=== PATIENT | female | born 1960 | race Caucasian/White ===

== ENCOUNTER → 2023-08-10 13:03 | Outpatient (CLI) | payer OTHER, MEDICAID, SELFPAY ==
[2023-08-10 13:58] LABS: Add Manual Diff / Slide Review NO; Basophils Absolute Auto 0 /uL (0-100); Basophils Percent Auto 0.6 % (0-2); Eosinophils Absolute Auto 100 /uL (0-450); Eosinophils Percent Auto 0.9 % (2-4); Hematocrit 45.5 % (36-46); Hemoglobin 15.3 g/dL (12.0-16.0); Lymphocytes Absolute Auto 1900 /uL (1100-4500); Lymphocytes Percent Auto 25.8 % (25-40); Mean Corpuscular HGB Conc 33.6 % (30-36); Mean Corpuscular Hemoglobin 31.1 PG (26-34); Mean Corpuscular Volume 92.4 fL (80-100); Monocytes Absolute Auto 600 /uL (0-900); Monocytes Percent Auto 8.4 % (3-14); Neutrophils Absolute Auto 4800 /uL (1500-7000); Neutrophils Percent Auto 64.3 % (50-75); Platelet Count 283 X10^3/uL (150-400); Red Blood Cell Count 4.92 X10^6/uL (4.0-5.2); Red Cell Distribution Width 15.4 % (11.6-14.8); White Blood Cell Count 7.5 X10^3/uL (4.5-11.0)
[2023-08-10 14:06] LABS: Hemoglobin A1C% w Est Avg Glu 5.5 % (4.0-6.0)
[2023-08-10 14:11] LABS: Appearance Urine UA CLEAR; Bilirubin Urine UA 1+ (NEGATIVE); Color Urine UA YELLOW; Glucose Urine UA NEGATIVE (Negative); Ketones Urine UA TRACE (NEGATIVE); Leukocyte Esterase Urine UA NEGATIVE (NEGATIVE); Nitrite Urine UA NEGATIVE (Negative); Occult Blood Urine UA NEGATIVE (Negative); Protein Urine UA NEGATIVE (Negative); Specific Gravity Urine UA 1.025 (1.000-1.035); Urobilinogen Urine UA 0.2 E.U./dL (0.2)
[2023-08-10 14:12] LABS: pH Urine UA 5.5 (4.5-8.0)
[2023-08-10 14:14] LABS: Ictotest Urine Negative (Negative); Urine Volume 10mL (spun)
[2023-08-10 14:15] LABS: Bacteria Urine None Seen; RBC Urine None Seen (0-5/HPF); Squamous Epithelial Cell Urine 1-5 /HPF (0-5/HPF); WBC Urine None Seen (0-5/HPF)
[2023-08-10 14:16] LABS: BUN Creatinine Ratio 19.3 (6-22); Blood Urea Nitrogen 11 mg/dL (7-17); Calcium 9.3 mg/dL (8.4-10.2); Calcium Oxalate Crystals Urine Moderate; Carbon Dioxide 30 mmol/L (22-32); Chloride 101 mmol/L (98-107); Culture Indicated Urine Cult Not Indicated; Estimated Glomerular Filt Rate > 60 mL/min (>60); Glucose 126 mg/dL (80-110); HEMOLYSIS 24 (0-50); Potassium 4.2 mmol/L (3.4-5.1); Sodium 136 mmol/L (137-145)
== END ==
PROVIDERS: Referring Provider Orthopaedic Surgery; Visit Provider Orthopaedic Surgery
DX: Z01.818 Encounter for other preprocedural examination (principal); Z01.812 Encounter for preprocedural laboratory examination; R73.9 Hyperglycemia, unspecified; N39.0 Urinary tract infection, site not specified
CPT/HCPCS: 36415; 80048; 81001; 83036; 85025; 93005; 93010

== ENCOUNTER 2023-10-13 05:51 | Day surgery (SDC) | payer OTHER, MEDICAID, SELFPAY ==
[2023-10-04 08:23] VITALS: BMI 37.9
[2023-10-13] VITALS (12 sets, daily range): BP systolic 92–145; BP diastolic 44–97; PULSE 68–89; RESP 12–20; TEMP 35.9–36.7; O2SAT 93–97; BMI 37.9
--- NOTE | 2023-10-13 | DI.RAD.S_ITS ---
PROCEDURE: XR PELVIS 1-2V INDICATIONS: intra-op rt hip TECHNIQUE: Intra-operative view of the pelvis and hip acquired. COMPARISON: None. FINDINGS: Bones: Intraoperative devices prior to placement of arthroplasty prostheses are in expected positions. No fractures or suspicious bony lesions. Soft tissues: Overlying surgical retractors are present, along with other intraoperative changes. IMPRESSION: Intraoperative view during right hip arthroplasty. Dictated by: Deshawn Gamboa M.D. on 10/13/2023 at 10:59 Approved by: Deshawn Gamboa M.D. on 10/13/2023 at 11:00
[2023-10-13] MEDS: LACTATED RINGERS 1,000 ML 42 ML IV ×2 (07:06→09:23)
--- NOTE | 2023-10-13 07:12 | PM.PREOP ---
Pre-operative Note Interval Note History & Physical reviewed/Exam performed by Physician: Yes Changes to H&P: No
--- NOTE | 2023-10-13 07:12 | PM.OP.1 ---
Operative Date/Time/Diagnoses Date of procedure: 10/13/23 Time of procedure: 07:45 Pre-op diagnosis: right hip OA/ AVN Post-op diagnosis: same Procedure & Clinicians Procedure: Right total hip arthroplasty posterior approach Same procedure as scheduled: Yes Indications: The patient has had progressively worsening right hip pain with radiographic changes consistent with arthritis. Non-operative management has failed and the patient has requested total hip replacement. The risks, benefits and alternatives to surgery were discussed with the patient prior to proceeding. Risks discussed included, but were not limited to, failure to relieve pain, leg length discrepancy, dislocation, stiffness, infection, nerve damage, deep venous thrombosis, pulmonary embolism, stroke, coma, heart attack, permanent paralysis and , as well as the potential need for eventual revision of the prosthetic. Surgeon: Mireya Stewart Refinery Process Engineer: Efrem Recinos Anesthesia Type: General and Spinal Operative Notes Findings: Severe right hip OA and AVN, adequate bone, adequate stability Closure Type: primary Specimen(s): none sent Prosthetic devices, grafts, tissues, transplants, or devices: Stewart and nephew 48 R3, neutral poly liner, one 6.5 mm screw, polar stem size 2 standard offset, 32 by-3 Oxinium head Estimated Blood Loss (mL): 250 Blood products transfused: none Procedure in detail: The patient was seen in the pre-operative area, where the patient identified the right hip as the operative site and this was marked with my initials. The patient received pre-operative antibiotics and was taken to the operating room and placed on the operative table in the left lateral decubitus position after satisfactory anesthesia. A multimedia author out was performed. The right leg was prepared from the ankle to the iliac crest with ChloroPrep in the usual fashion and draped through sterile drapes. PA was used during the procedure and was essential for intraoperative retraction and safe implantation of the components. The hip was approached through an approximately 20 cm incision centered over the greater trochanter and curving gently posteriorly as it went proximally. This was carried sharply to the fascia emmanuel, which was divided and retracted with a self retaining retractor. The trochanteric bursa was excised with care being taken to avoid the sciatic nerve, which was identified and protected throughout the case. The short external rotators were incised and the capsulomuscular flap was raised and tagged for later repair. The hip was dislocated, and a femoral neck osteotomy performed approximately 15 mm above the lesser trochanter. Retractors were placed around the femur. The canal was opened with a box cutting osteotome, followed by a T handled reamer and a lateralizing reamer. The chili pepper broach was then used, followed by sequential broaching until there was good stability of the broach in the femur. Retractors were placed to expose the acetabulum. The labrum and central soft tissues were removed. Reaming was performed initially going up in 2 mm increments, then 1 mm increments until good bite was obtained with an odd sized reamer. The cup 1 mm larger than the last reamer was then inserted using the appropriate anteversion guides. It was further stabilized with a single screw. A trial neutral liner was placed. The broach was placed in the canal. A trial head and neck were then placed and the hip relocated and checked for leg length and stability. An intraoperative film confirmed the component position and no evidence of fracture. The patient was stable in the position of sleep, of squatting, and could be put through a range of motion with 45 degrees internal rotation without dislocation. At 90 degrees flexion, internal rotation to 70? Was possible before dislocation. With a +0 the hip was clearly too tight. We also did a trial reduction with a-3 which showed acceptable range motion and stability. Along the greater trochanter on the posterior side there was a small amount of the greater trochanter where it appeared that there was a minor crack. It did not extend to the anterior aspect of the greater trochanter but it was felt that we should probably repair it. The stability of the broach in the bone was good. It was not felt that I needed to cemented the prosthesis. The minor crack was repaired with interrupted FiberWire stitches. It was not felt that additional cerclage wire plate would be needed. The stability was felt to be satisfactory and the appropriate components were opened, and the trials were removed. The acetabular liner was impacted into position. The final stem was then impacted into the prepared femoral canal. A brief Betadine soak was performed while trialing with head options. The hip was meticulously irrigated with normal saline. Finally the femoral head was impacted onto the stem. The acetabulum was cleared of all material and the hip relocated one final time. The capsulomuscular flap was then repaired to the greater trochanter though an awl hole using the tag sutures. The short external rotators were repaired with a nonabsorbable suture. A deep drain was placed and brought out anteriorly. The fascia emmanuel was closed with Vicryl. The subcutaneous layer was closed with barbed sutures and skin oly. An Aquacel Ag dressing was applied and the patient was taken to recovery having tolerated the procedure well. Complications: none Post-operative Condition: stable Disposition: Acute Care Plan for aftercare: The patient will be maintained on a standard total hip replacement protocol with weight bearing as tolerated and posterior hip precautions. The patient will receive Aspirin and sequential compression devices for DVT prophylaxis. The patient will be discharged home when safe for the home environment.
--- NOTE | 2023-10-13 07:18 | DI.RAD.S_ITS ---
PROCEDURE: XR HIP W PEL IF DONE RT 2V INDICATIONS: MISAEL, posterior TECHNIQUE: AP pelvis and lateral view of the hip acquired. COMPARISON: None. FINDINGS: Bones: Patient is status post right hip arthroplasty, with hardware components in expected positions. The hip joint appears congruent. The visualized bony structures appear intact. Soft tissues: Overlying postoperative changes are noted. No suspicious soft tissue densities. IMPRESSION: Expected post-operative appearance of a hip arthroplasty. Dictated by: Pura Bailey MD, PhD on 10/13/2023 at 11:31 Approved by: Pura Bailey MD, PhD on 10/13/2023 at 11:31
[2023-10-13] MEDS: VANCOMYCIN 1,000 MG/200 ML PIGGYBACK 200 MG IV (07:29)
[2023-10-13] MEDS: CELECOXIB 200 MG CAPSULE PO (07:30)
[2023-10-13] MEDS: ACETAMINOPHEN 325 MG TABLET 975 MG PO (07:30)
[2023-10-13] MEDS: CEFAZOLIN 2 GM/100 ML PREMIX 100 ML IV ×2 (07:58→16:29)
--- NOTE | 2023-10-13 08:34 | SUR.OPER ---
Lateral on padded OR bed. Gel axillary roll. Arms secured on padded armboard with pillow supporting top arm. Padded hip positioner braces x4 - anterior and posterior chest and pelvis. Additional gel pad used anterior pelvis. Gel pad under bottom leg from knee to foot and secured with tape over sheet.
[2023-10-13] MEDS: BUPIVACAINE LIPOSOME 266 MG/20 ML VIAL INJ (08:47)
[2023-10-13] MEDS: BUPIVACAINE 0.25% (PF) 60 ML, EPINEPHrine 0.3 MG INJ (08:47)
[2023-10-13] MEDS: OXYCODONE IR 5 MG TABLET PO ×2 (11:11→12:18)
[2023-10-13] MEDS: HYDROMORPHONE 1 MG INJ IV (11:15)
[2023-10-13] MEDS: IBUPROFEN 400 MG TABLET PO (12:18)
--- NOTE | 2023-10-13 12:22 | PT-IP ANOTE ---
Pt arrives in the past hour after surgery to the floor. Nsg and pt report that pt has high pain s/p R posterior MISAEL and she cannot currently tolerate PT assessment and OOB. Will con't PT efforts at a later time.
[2023-10-13] MEDS: LORazepam 0.5 MG TABLET PO (14:30)
--- NOTE | 2023-10-13 14:30 | OT.IP.EVAL ---
Current Diagnoses Unilateral primary osteoarthritis, right hip (10/13/23) Surgery Performed Operation Date: 10/13/23 07:45 Actual Procedures p Total Hip Arthroplasty(Right) - Mireya Stewart MD Past Medical History (Last Updated 10/04/23 @ 09:47 by Suzi Khan, RN) Anesthesia complication Anxiety Arrhythmia COPD (chronic obstructive pulmonary disease) Depression Easy bruisability Hepatitis C (~2009) HTN (hypertension) IBS (irritable bowel syndrome) Increased heart rate Insomnia Migraines Osteoarthritis PTSD (post-traumatic stress disorder) TIA (transient ischemic attack) (~2013) Vision abnormalities Surgical History (Last Updated 10/04/23 @ 09:29 by Suzi Khan RN) H/O left wrist surgery H/O right wrist surgery History of ankle surgery History of cardiac cath (~2013) History of elective History of hernia surgery History of tonsillectomy Hx of dilation and curettage Hx of neck surgery Occupational Therapy Inpatient Evaluation/Re-Eval M1 PT/OT-IP Prior Functional Status Start: 10/13/23 14:33 Freq: NEEDED Status: Active Protocol: Document 10/13/23 14:34 [facility] (Rec: 10/13/23 14:55 [facility] [id number]) Medical Review Prior Functional Status Communication Independent Mobility and Gait Pt uses a fww to get around. Activities of Daily Living and IADL's Pt's mother has had to help with LB dressing needs. Social History Household Members family Living Arrangements House Number of Floors (Floors) One Floor Number of Stairs To Enter/Railing? 3 steps with right rail. Home Environment Standard Height Toilet,Walk in Shower Home Equipment Front Wheel Walker,Straight Cane,Shower Seat with Backrest ,Hand Held Shower,Grab Bars In Shower Additional Social History Comment Pt elderly mom able to provide assist for IADL and for LB dressing needs , but unable to do any lifting. M2 OT-IP Current Condition Start: 10/13/23 14:33 Freq: Status: Active Protocol: Document 10/13/23 14:34 [facility] (Rec: 10/13/23 14:55 [facility] [id number]) Occupational Therapy Current Condition Current Condition Evaluation Date 10/13/23 Treatment Diagnosis S/P RTHA Posterior Diagnosis Onset Date 10/13/23 Post Operative Precautions Posterior Hip Precautions No Hip Flexion > 90 degrees,No Hip Internal Rotation,No Hip Adduction M3 OT- IP Subjective and Pain Start: 10/13/23 14:33 Freq: Status: Active Protocol: Document 10/13/23 14:34 [facility] (Rec: 10/13/23 14:55 [facility] [id number]) OT- Subjective Occupational Therapy Visit Type Type Initial Evaluation Visit Start Time 13:43 Visit Stop Time 14:30 Occupational Therapy Visit Comments Patient Comments Pt in lots of pain but agreed to try to get up. Nursing aware. Patient/Caregiver Goals To go home. OT Pain Assessment Pain When Pain Assessed During Mobility Pain Present Pain Present Pain Reported Location right hip Intensity 10 Scale Used Numeric (0 - 10) M4 OT- IP ADL's Start: 10/13/23 14:33 Freq: Status: Active Protocol: Document 10/13/23 14:34 [facility] (Rec: 10/13/23 14:55 [facility] [id number]) OT [id number] Comments OT Self-Feeding Comments Pt having no appetite due to increased pain. OT ADL-Grooming Comments OT Grooming Comments Not performed. OT ADL-Oral Care Comments Oral Care Comments Not performed. OT ADL-Dressing General Eval Lower Body Dressing Ability Maximum Assistance Comments OT Dressing Comments Able to show pt and practice use of LB dressing equipment. Pt states her mother will just assist her as she did when she had a fx right ankle. OT ADL-Toileting Comments OT Toileting Comments Pt not having to go. Pt would benefit from a BSC or RTS at home. Pt plans to use wet wipes and brief. Educated to pt best to stand and do her hygiene needs. OT ADL-Bathing Comments OT Bathing Comments Pt will benefit from assist at this time. M5 OT- IP IADL's Start: 10/13/23 14:33 Freq: Status: Active Protocol: Document 10/13/23 14:34 [facility] (Rec: 10/13/23 14:55 [facility] [id number]) OT-Instrumental Activities of Daily Living Deficits IADL Deficits Identified Deficits Home Safety Awareness Awareness of Need for Assistance at Home Good Awareness Home Safety Comments Pt having trouble to focus as in so much pain, nursing aware . Meal Preparation Meal Preparation Caregiver Provides Assist Master Merchandiser Master Merchandiser Caregiver Provides Assist M6 OT- IP Functional Cognition Start: 10/13/23 14:33 Freq: Status: Active Protocol: Document 10/13/23 14:34 [facility] (Rec: 10/13/23 14:55 [facility] [id number]) Cognitive Factors Limiting Selfcare Function Cognitive Ability Level of Alertness Alert Patient Orientation Name,Age,Birthday,Month,Date, Year,Day of Week,Place, Situation Attention Span Ability Capable of Focused Attention, Unable to Sustain Attention Ability to Follow Commands Able to Follow One Step Commands Safety Awareness Decreased Recall of Precautions,Decreased Ability to Apply Precautions Cognitive Comments Cognitive Assessment Comments Pt heavily focused on her pain at this time and having trouble thinking and needing verbal cues to follow for her hip precautions for ADL and mobility needs. OT- Vision and Hearing OT- Hearing Assessment OT- Hearing Assessment WFL OT- Vision Assessment Visual Acuity Glasses For Reading Visual Attentiveness WFL Occular Pursuits WFL M7 OT- IP Mobility and Balance Start: 10/13/23 14:33 Freq: Status: Active Protocol: Document 10/13/23 14:34 [facility] (Rec: 10/13/23 14:55 [facility] [id number]) OT- Bed Mobility Assessment Supine to Sit Supine to Sit Assist Minimal Assistance Sit to Supine Sit to Supine Assist Minimal Assistance Scooting Scooting to Edge of Bed Standby Assistance OT-Transfer Assessment Sit to and From Stand Sit to and from Stand Minimal Assistance Transfers Transfer Ability Minimal Assistance,Moderate Assistance Technique Transfer Destination Bed,Chair Transfer Technique Stand Step Pivot Devices Transfer Assistive Devices Gait Belt,Front Wheeled Walker Comments Mobility Comments GUCCI to get her RLE into and out of the bed. Showed pt how to use the gait belt to assist if needed. GUCCI to stand and needing initially MODA and then after getting more comfortable on her feet GUCCI with FWW. VC to keep her RLE tight while using her arms on the fww to help advance her other leg. OT- Balance Assessment Sitting Balance and Reactions Static Sitting Balance Ability Good Dynamic Sitting Balance Ability Fair Standing Balance and Reactions Static Standing Balance Ability Fair Dynamic Standing Balance Ability Fair M8 OT- IP Objective Assessments Start: 10/13/23 14:33 Freq: Status: Active Protocol: Document 10/13/23 14:34 [facility] (Rec: 10/13/23 14:55 [facility] [id number]) OT Gross Range of Motion Upper Extremity Range of Motion Assessment Within Functional Limits OT Strength Upper Extremity Strength Assessment Within Functional Limits M9 OT- IP Assessment and Plan Start: 10/13/23 14:33 Freq: Status: Active Protocol: Document 10/13/23 14:34 [facility] (Rec: 10/13/23 14:55 [facility] [id number]) OT Summary Assessment and Plan Potential Rehabilitation Potential Good Analytic Complexity at Evaluation Low Summary OT Impairments Pain,Strength,Balance, Functional Mobility,Grooming, Dressing,Toileting,Bathing, Toilet Transfers Progress Towards Goals Slow Progress due to Pain,Slow Progress due to Medical Issues Assessment Summary Pt main barriers are pain, complaining of shooting pains down her right LE and steps. Pt once on her feet able to take a few steps with GUCCI to MODA x1 with FWW. Pt will benefit from LB dressing equipment and a BSC for home use. Pt to go home when medically stable. Pt to go home with 18/10 available assist and outpt PT. Goals Grooming Goal Independent Dressing Goal Minimal Assistance Toileting Goal Independent Bathing Goal Minimal Assistance Toilet Transfer Goal Independent Shower Transfer Goal Contact Guard Assistance Days to Meet Goals 7 Frequency of Treatment Frequency Of Treatment Once a Day Treatment Plan OT Treatment Plan ADL Training,Functional Mobility,Patient/Family Education,Discharge Planning Other Treatment Recommendations and Next ADL while standing and Treatment Focus practice hip precautions for ADL needs. Discharge Recommendations OT Discharge Recommendations Home with 18/10 Assist Available,Outpatient PT Home Equipment Needs BSC, LB dressing equipment Transportation Needs at Discharge Private Vehicle
--- NOTE | 2023-10-13 14:37 | PC.NURSE ---
Addendum entered by Delia Carpio R.N. 10/13/23 18:34: Patient voided and she is comfortable, visiting with her Aunt at this time. Addendum entered by Delia Carpio R.N. 10/13/23 15:30: Ativan given to patient helpful for anxiety, patient states that her r.hip is 8/10 pain and it is a burning feeling. Just given 10mg of oxycodone for discomfort along with 2 tylenol. Will recheck patients pain in an hour. Original Note: Patient up to room around 1145, she has a neville dressing to her r.hip that is cdi. Given 5mg of oral oxycodone and ibuprofen around 1215. She was also given dilaudid iv and some tylenol down in pacu an hour or so prior to coming up to floor. Patient is hyper-fixated on her pain to r.hip and constantly repeats herself that it valle. Explained to patient several times that the pain medication will help keep her comfortable but that she will still have some discomfort. She is more anxious and worked up. Patient is moving herself around in bed and we have tried to explain to her to deep breath, and that the use of ice will help alleviate some of that discomfort but she does not want feedback from staff. Ativan 0.5mg po just given to patient and her friend Karen is at her bedside. Will reapproach patient in 30 minutes. LR infusing at 100cc/hr and patient is tolerating this well.
[2023-10-13] MEDS: OXYCODONE IR 10 MG TABLET PO ×2 (15:13→20:04)
[2023-10-13] MEDS: ACETAMINOPHEN 325 MG TABLET 650 MG PO ×2 (15:14→22:24)
[2023-10-13] MEDS: LACTATED RINGERS 1,000 ML 100 ML IV (15:15)
[2023-10-13] MEDS: ASPIRIN EC 81 MG TABLET PO (20:10)
[2023-10-13] MEDS: DOCUSATE 100 MG CAPSULE PO (20:10)
[2023-10-14] MEDS: CEFAZOLIN 2 GM/100 ML PREMIX 100 ML IV (01:00)
[2023-10-14] MEDS: LACTATED RINGERS 1,000 ML 100 ML IV (01:04)
[2023-10-14] MEDS: IBUPROFEN 600 MG TABLET PO ×2 (01:10→08:52)
[2023-10-14] MEDS: OXYCODONE IR 10 MG TABLET PO ×2 (01:10→05:29)
[2023-10-14 05:20] VITALS: BP 143/81; PULSE 89; RESP 19; TEMP 36.6; O2SAT 96
[2023-10-14 06:46] LABS: Hematocrit 35.7 % (36-46); Hemoglobin 12.3 g/dL (12.0-16.0)
[2023-10-14 08:00] VITALS: BP 137/77; PULSE 79; RESP 18; TEMP 36.7; O2SAT 96
--- NOTE | 2023-10-14 08:30 | P.DS_ITS ---
History of Present Illness History of Present Illness Date Patient Seen: 10/14/23 Time Patient Seen: 08:15 Chief complaint: Right Total Hip Arthroplasty Narrative: Procedure & Clinicians Procedure: Right total hip arthroplasty posterior approach Same procedure as scheduled: Yes Indications: The patient has had progressively worsening right hip pain with radiographic changes consistent with arthritis. Non-operative management has failed and the patient has requested total hip replacement. The risks, benefits and alternatives to surgery were discussed with the patient prior to proceeding. Risks discussed included, but were not limited to, failure to relieve pain, leg length discrepancy, dislocation, stiffness, infection, nerve damage, deep venous thrombosis, pulmonary embolism, stroke, coma, heart attack, permanent paralysis and , as well as the potential need for eventual revision of the prosthetic. Surgeon: Mireya Stewart Sanitation Worker Cleaning Equipment: Efrem Recinos Anesthesia Type: General and Spinal Operative Notes Findings: Severe right hip OA and AVN, adequate bone, adequate stability Closure Type: primary Specimen(s): none sent Prosthetic devices, grafts, tissues, transplants, or devices: Stewart and nephew 48 R3, neutral poly liner, one 6.5 mm screw, polar stem size 2 standard offset, 32 by-3 Oxinium head Estimated Blood Loss (mL): 250 Blood products transfused: none Discharge Providers Provider Date of admission: 10/13/23 Discharge Date: 10/14/23 Primary care physician: AIRAM De La Torre Consults: 10/13/23 07:18 Consult to Anesthesiology Routine Comment: Consulting Provider: Anesthesiologist Reason for consultation: Regional block for post operative pain control 10/13/23 11:56 Consult to Discharge Planning Routine Comment: Consult to Occupational Therapy Evaluate & Treat Comment: Physician Instructions: Evaluate and treat Consult to Physical Therapy Evaluate & Treat Comment: Physician Instructions: post op MISAEL protocol Discharge provider: Best Chow PA-C Summary Hospital Course Discharge Diagnosis: Status post right hip total arthroplasty posterior approach Hospital Course: Multimodal pain control. Physical therapy. Status at Discharge Cognitive/behavioral status at discharge: oriented Functional status at discharge: uses cane/walker Time Spent with Patient Time spent: Less than 30 minutes Exam Vital Signs (past 8 hours): - 10/14/23 05:20 Temperature 98 F Pulse Rate 89 Respiratory Rate 19 Blood Pressure 143/81 H Pulse Oximetry 96 Oxygen Flow Rate 0 Oxygen Delivery Method Room Air Oxygen Flow Rate 0 Narrative Exam Narrative: Patient is found lying comfortably in bed. Dressing is dry and well-maintained but vac is not working appropriately. 5/5 strength in hip flexors, quadriceps, hamstrings, DF, PF, EHL bilaterally. Sensation to light touch intact throughout BLE. Calves soft, compressible, nontender. Objective Labs 10/14/23 06:29 Labs: Laboratory Results - last 24 hr 10/14/23 06:29 Hgb 12.3 Hct 35.7 L PFSH Medical History (Updated 10/04/23 @ 09:47 by Suzi Khan RN) Depression PTSD (post-traumatic stress disorder) Easy bruisability Anxiety Osteoarthritis Hepatitis C (~2009) IBS (irritable bowel syndrome) Increased heart rate Arrhythmia HTN (hypertension) Insomnia COPD (chronic obstructive pulmonary disease) Migraines Vision abnormalities TIA (transient ischemic attack) (~2013) Anesthesia complication Surgical History (Updated 10/04/23 @ 09:29 by Suzi Khan RN) History of hernia surgery Hx of neck surgery H/O right wrist surgery H/O left wrist surgery History of ankle surgery History of tonsillectomy History of elective Hx of dilation and curettage History of cardiac cath (~2013) Social History household members: family Smoking Status: Former smoker alcohol intake: current Discharge Assessment & Plan Assessment and Plan Assessment: Status post right hip total arthroplasty posterior approach. Plan of Treatment: AFUA dressing changed today. Plan to discharge home Standard total hip replacement protocol with weight-bearing as tolerated and posterior hip precautions Aspirin 81 mg b.i.d. for DVT prophylaxis for 6 weeks Multimodal pain management Mobilize with outpatient physical therapy Follow up in clinic in 2 weeks for wound check. Discharge Plan Discharge Plan Patient Disposition: Home Provider Discharge Comment: DC pending PT approval Discharge orders & Medications Discharge Orders: Discharge (Order); Ordered 10/14/23 Ordered By: Best Chow Prescriptions: New aspirin 81 mg Tablet,Delayed Release (Dr/Ec) 81 mg PO BID Qty: 90 0RF Continued atenolol 25 MG tablet 25 mg PO QDAY Qty: 0 ibuprofen 800 mg Tablet 800 mg PO DAILY PRN (Reason: Pain) lorazepam 0.5 mg Tablet 0.5 mg PO DAILY PRN (Reason: Anxiety) oxycodone 5 mg Tablet 5 mg PO Q8H PRN (Reason: Pain) hydrochlorothiazide 12.5 mg Tablet 12.5 mg PO DAILY Follow up/Referrals: Lizbet Ohara FNP-C [Primary Care Provider] - Diet/Activity/Treatments Activity: Weightbearing as tolerated with assistive device Cold/Heat Therapy: May ice every hour for up to 20 minutes at a time Skin/Wound/Dressing Care Report to your healthcare provider any signs of infection, such as:: chills, fever, night sweats, unusual drainage and unusual redness Dressing: Keep dressing clean and dry. Visit Report/Discharge Packet Instructions: DI for Hip Replacement Stand Alone Forms: Patient Portal/API, Surgery Discharge Discharge Data Primary Care Provider: Lizbet Ohara Attending Provider: Mireya Stewart VTE Deep Vein Thrombosis/Pulmonary Embolism Present on Admission: No
[2023-10-14] MEDS: atenoloL 25 MG TABLET PO (08:52)
[2023-10-14] MEDS: DOCUSATE 100 MG CAPSULE PO (08:52)
[2023-10-14] MEDS: ASPIRIN EC 81 MG TABLET PO (08:53)
[2023-10-14] MEDS: hydroCHLOROthiazide 25 MG TABLET 12.5 MG PO (08:53)
--- NOTE | 2023-10-14 10:30 | PT.IIE ---
Current Diagnoses Unilateral primary osteoarthritis, right hip (10/13/23) Surgery Performed Operation Date: 10/13/23 07:45 Actual Procedures p Total Hip Arthroplasty(Right) - Mireya Stewart MD Surgical History (Last Updated 10/04/23 @ 09:29 by Suzi Khan RN) H/O left wrist surgery H/O right wrist surgery History of ankle surgery History of cardiac cath (~2013) History of elective History of hernia surgery History of tonsillectomy Hx of dilation and curettage Hx of neck surgery Medical History (Last Updated 10/04/23 @ 09:47 by Suzi Khan RN) Anesthesia complication Anxiety Arrhythmia COPD (chronic obstructive pulmonary disease) Depression Easy bruisability Hepatitis C (~2009) HTN (hypertension) IBS (irritable bowel syndrome) Increased heart rate Insomnia Migraines Osteoarthritis PTSD (post-traumatic stress disorder) TIA (transient ischemic attack) (~2013) Vision abnormalities Physical Therapy Inpatient Evaluation/Re-Eval M1 PT/OT-IP Prior Functional Status Start: 10/13/23 14:33 Freq: NEEDED Status: Active Protocol: Document 10/14/23 10:30 AB (Rec: 10/14/23 13:36 AB [id number]) Medical Review Prior Functional Status Medical History Reviewed Yes Communication able to make needs known Mobility and Gait pt stated that she was modified independent with all mobilities and ambulation withotu AD indoors but uses a walking stick for outdoor mobility. Activities of Daily Living and IADL's per OT note: Pt's mother has had to help with LB dressing needs. Social History Household Members family Living Arrangements House Number of Floors (Floors) One Floor Number of Stairs To Enter/Railing? 3 steps R rail ascedning Home Environment Standard Height Toilet,Walk in Shower,Built-In Shower Seat Home Equipment Front Wheel Walker,Shower Seat with Backrest,Hand Held Shower,Grab Bars In Shower Additional Social History Comment pt lives with her mother but will not be able to assist pt; pt plans to have her GF for ~ 2days to stay with her and assist her and may assist afterwards as well since GF lives close by M2 PT-IP Current Condition Start: 10/13/23 12:16 Freq: NEEDED Status: Active Protocol: Document 10/14/23 10:30 AB (Rec: 10/14/23 13:36 AB [id number]) Physical Therapy Current Condition Current Condition Evaluation Date 10/14/23 Treatment Diagnosis s/p R MISAEL posterior; difficulty in walking Onset Date 10/13/23 M3 PT-IP Subjective Start: 10/13/23 12:16 Freq: NEEDED Status: Active Protocol: Document 10/14/23 10:30 AB (Rec: 10/14/23 13:36 [id number]) Subjective Physical Therapy Visit Type Type Initial Evaluation Visit Start Time 10:30 Visit Stop Time 11:35 Number of DISTRICT SERVICE MANAGER Visits 0 Physical Therapy Visit Comments Patient Comments agreeable to do PT Therapy Pain Assessment Pain When Pain Assessed At Rest Pain Present Pain Present Pain Reported Location right hip Intensity 6 Scale Used Numeric (0 - 10) Pain Behaviors Guarding Pain Management Techniques Apply Cold,Distraction, Modification of Treatment,Re- positioning,Timing of Activity with Medications M4 PT-IP Mobility and Gait Start: 10/13/23 12:16 Freq: NEEDED Status: Active Protocol: Document 10/14/23 10:30 AB (Rec: 10/14/23 13:36 [id number]) PT-Bed Mobility Assessment Supine to Sit Supine to Sit Standby Assistance PT-Transfer Assessment Sit to and From Stand Sit to and from Stand Standby Assistance,1 Person Assistance,Use of Upper Extremities Equipment Transfer Assistive Device Gait Belt,Front Wheeled Walker Orthotic/Prosthetic Devices or Brace: No Transfers Transfer Destination Chair Transfer Technique ambulated Transfer Ability Level of Assist Standby Assistance,Contact Guard Assistance,1 Person Assistance,Use of Upper Extremities Comments Mobility Comments pt supine in bed and agreeable to do PT. obtained PLOF and homse set up from pt. post-op folder reviewed and educated pt on posterior hip precautions for RLE. pt initially has difficulty recalling but able to recall after repetitions. pt completed supine to sit SBA . able to sit on EOB SBA. completed sit to stand CGA and ambulated in room using FWW ~ 20 ft SBA to CGA. pt sat on the chair and rested. pt agreed to do stairs. completed sit to stand from chair SBA and cues for hand placement and precautions and ambulated towards the stairs ~ 75 ft using fWW SBA to CGA. stair climbing training: PT educated and demonstrated to pt on how to do stairs. pt completed up/down steps holding on to R rail with B hands CGA. assisted pt back to her room. pt ambulated from w/c to chair using FWW SBA. pt sat on EOB and completed sit<>supine SBA. cued on techniques. pt step transfer to chair SBA. positioned pt on the chair. call light and table placed within reach. pt without further concerns. stated that she will instruct her friend on how to assist her if needed. pt has outpt PT set up until november per pt . Gait Assessment Gait Gait Assistance Required: Standby Assistance,Contact Guard Assist Distance (Feet) 75 Able to Maintain Weight Bearing Status Yes During Gait Assistive Devices Assistive Device Gait Belt,Front Wheeled Walker Orthotic/Prosthetic Devices or Brace: No Gait Deviations General Gait Pattern Antalgic,Decreased Stride Length,Decreased Feet Clearance,Step-to Gait Factors Limiting Gait Function Factors Limiting Gait Function Decreased Activity Tolerance, Decreased Strength,Difficulty Following Directions,Limited Range of Motion,Pain,Poor Balance,Poor Safety Awareness Stair Climbing Assessment Evaluation Level of Assist On Stairs Contact Guard Assistance Devices Stair Climbing Assistive Devices Right Railing Technique/Endurance Stair Climbing Direction Ascend and Descend Stair Climbing Technique Step to Step Number of Steps Climbed 3 Query Text: Stair Climbing Set # Repetitions (reps) 1 PT-Balance Assessment Sitting Balance and Reactions Static Sitting Balance Ability Normal Dynamic Sitting Balance Ability Good Standing Balance and Reactions Static Standing Balance Ability Fair Dynamic Standing Balance Ability Fair Device Used FWW M5 PT-IP Objective Assessments Start: 10/13/23 12:16 Freq: NEEDED Status: Active Protocol: Document 10/14/23 10:30 AB (Rec: 10/14/23 13:36 AB [id number]) Orientation Orientation/Cognition Level of Alertness Alert Orientation Name,Place,Situation Language Function Ability No Deficits Noted Safety Awareness Decreased Safety Awareness Memory Description Short Term Impaired Gross Range of Motion Lower Extremity ROM Assessment Within Functional Limits Strength Lower Extremity Strength Assessment Right Impaired Hip 3+/5 Knee 4-/5 Coordination Assessment Gross Coordination Gross Coordination WNL Sensation Assessment Sensation Gross Sensation WNL Muscle Tone Muscle Tone WNL Yes M6 PT-IP Treatment Start: 10/13/23 12:16 Freq: NEEDED Status: Active Protocol: Document 10/14/23 10:30 AB (Rec: 10/14/23 13:36 AB [id number]) Physical Therapy Treatment Education Education Provided Precautions,Weight Bearing Status,Post-Op Packet,Safety M7 PT-IP Assessment and Plan Start: 10/13/23 12:16 Freq: NEEDED Status: Active Protocol: Document 10/14/23 10:30 AB (Rec: 10/14/23 13:36 AB [id number]) PT Summary Assessment and Plan Potential Rehabilitation Potential Fair Status of Condition at Evaluation Stable Summary Impairments Pain,ROM,Strength,Balance, Coordination,Sensation,Tone, Cognition,Bed Mobility, Transfers,Gait,Activity Tolerance Assessment Summary pt is a 63 y/o F s/p R MISAEL posterior approach POD 1. pt with R hip posterior precautions and is WBAT. pt requiring SBA to occasional CGA with mobility using FWW and plans to go home with her friend to assist her. pt may go home when medically stable. Goals Bed Mobility Goal Independent Transfer Goal Independent,Front Wheeled Walker Gait Goal Independent,Front Wheel Walker Gait Distance 200 Other Goals up/down 3 steps R rail ascending mod I Days to Meet Goals 5 Frequency of Treatment Frequency Of Treatment Twice a Day Treatment Plan Physical Therapy Treatment Plan Bed Mobility Training,Transfer Training,Gait Training, Therapeutic Exercise,Balance Retraining,Post Op Education, Discharge Planning,Hot or Cold Pack,Neuromuscular Re-ed, Coordination Retraining,Manual Therapy Precautions Posterior Hip Precautions No Hip Flexion > 90 degrees,No Hip Internal Rotation,No Hip Adduction Weight Bearing Status Weight Bearing Status Weight Bear as Tolerated Allowed Weight Bearing Amount (enter % RLE WBAT or #) (%) Recommendations To Nursing Amount of Assist Needed 1 Person Assist Discharge Recommendations PT Discharge Recommendations Home with Assistance, Outpatient PT Transportation Needs at Discharge Private Vehicle
--- NOTE | 2023-10-14 10:54 | PC.NURSE ---
Patient given ibuprofen earlier, and her neville dressing was changed. The motor is flashing green and patient is getting ready to work with physical therapy. She will most likely discharge home today.
--- NOTE | 2023-10-14 11:31 | CM.DANOTE ---
Initial DCP Assessment Note Pt is a 63 yo female, resident of [place], now POD#1 from Rt MISAEL PCP: Lizbet Ohara Payer: [employer] Reviewed chart, met w/patient to introduce self and role. Patient lives independently with her mom and has planned to have a girlfriend and neighbor assist for at least a few days once home. OT has cleared patient for this plan, have not seen PT eval yet. Patient feeling confident about this plan; reports her mom can also help as needed with light assist. No barriers identified at this time to patient's safe discharge home w/friends and family to assist; close outpatient f/u recommended. CM team will plan to follow clinical course closely in case any DC needs or concerns arise. ECTOR Burton Discharge Planning/Care Management CM Discharge Assessment Start: 10/14/23 09:39 Freq: Status: Active Protocol: Document 10/14/23 09:39 [email or web address] (Rec: 10/14/23 09:42 [id number]) Discharge Planning Assessment Assigned [employer] E[employer]ctor ECTOR Greenfield DPOA/Assigned Designee Name chastity Hudson Contact Information [phone] Advance Directives? No History Provided By Patient,Medical Record Prior Living Arrangements House Household Members family Type of transporation used prior to Drives own vehicle admit Independent with ADL's Yes Is patient alert and oriented? Yes Patient/Family Preference OP PT Therapy Barriers to Discharge No Discharge Plan Home Transportation Arrangement Friend Referrals Initiated None needed
[2023-10-14 11:44] VITALS: BP 128/84; PULSE 93; RESP 18; TEMP 37.1; O2SAT 96
--- NOTE | 2023-10-14 12:15 | OT.IP.TRT ---
Current Diagnoses Unilateral primary osteoarthritis, right hip (10/13/23) Surgery Performed Operation Date: 10/13/23 07:45 Actual Procedures p Total Hip Arthroplasty(Right) - Mireya Stewart MD Occupational Therapy Treatment Note M2 OT-IP Current Condition Start: 10/13/23 14:33 Freq: Status: Active Protocol: Document 10/13/23 14:34 [facility] (Rec: 10/13/23 14:55 [facility] [id number]) Occupational Therapy Current Condition Current Condition Evaluation Date 10/13/23 Treatment Diagnosis S/P RTHA Posterior Diagnosis Onset Date 10/13/23 Post Operative Precautions Posterior Hip Precautions No Hip Flexion > 90 degrees,No Hip Internal Rotation,No Hip Adduction M3 OT- IP Subjective and Pain Start: 10/13/23 14:33 Freq: Status: Active Protocol: Document 10/14/23 12:18 [facility] (Rec: 10/14/23 12:24 [facility] [id number]) OT- Subjective Occupational Therapy Visit Type Type Treatment Note Visit Start Time 12:00 Visit Stop Time 12:15 Occupational Therapy Visit Comments Patient Comments Pt agreed to get dressed. Patient/Caregiver Goals To go home. OT Pain Assessment Pain When Pain Assessed During Mobility Pain Present Pain Present Pain Reported M4 OT- IP ADL's Start: 10/13/23 14:33 Freq: Status: Active Protocol: Document 10/14/23 12:18 [facility] (Rec: 10/14/23 12:24 [facility] [id number]) OT INA-Tdvu-Jatsvrm General Evaluation Self-Feeding Ability Independent OT ADL-Grooming Comments OT Grooming Comments Not performed. OT ADL-Oral Care Comments Oral Care Comments Not performed. OT ADL-Dressing General Eval Lower Body Dressing Ability Minimal Assistance Comments OT Dressing Comments Able to issue pt benefits director and pt able to practice for LB dressing needs. Pt will still need assist to help get on her sandals from her mom. OT ADL-Toileting Comments OT Toileting Comments Pt did earlier. OT ADL-Bathing Comments OT Bathing Comments Not performed. Pt states will just sponge off initially. Went over care for dressing needs. M5 OT- IP IADL's Start: 10/13/23 14:33 Freq: Status: Active Protocol: Document 10/13/23 14:34 [facility] (Rec: 10/13/23 14:55 [facility] [id number]) OT-Instrumental Activities of Daily Living Deficits IADL Deficits Identified Deficits Home Safety Awareness Awareness of Need for Assistance at Home Good Awareness Home Safety Comments Pt having trouble to focus as in so much pain, nursing aware . Meal Preparation Meal Preparation Caregiver Provides Assist [employer] Delivery Caregiver Provides Assist M6 OT- IP Functional Cognition Start: 10/13/23 14:33 Freq: Status: Active Protocol: Document 10/14/23 12:18 [facility] (Rec: 10/14/23 12:24 [facility] [id number]) Cognitive Factors Limiting Selfcare Function Cognitive Ability Level of Alertness Alert Patient Orientation Name,Age,Birthday,Month,Date, Year,Day of Week,Place, Situation Attention Span Ability Capable of Focused Attention, Unable to Sustain Attention Ability to Follow Commands Able to Follow One Step Commands Safety Awareness Decreased Ability to Apply Precautions Cognitive Comments Cognitive Assessment Comments Pt still needing reminders to incorporate her hip precautions for ADl and mobility needs. Pt tends to bend too far forwards. M7 OT- IP Mobility and Balance Start: 10/13/23 14:33 Freq: Status: Active Protocol: Document 10/14/23 12:18 [facility] (Rec: 10/14/23 12:24 [facility] [id number]) OT-Transfer Assessment Sit to and From Stand Sit to and from Stand Standby Assistance Transfers Transfer Ability Standby Assistance Technique Transfer Destination Chair Transfer Technique Stand Step Pivot Devices Transfer Assistive Devices Front Wheeled Walker Comments Mobility Comments Pt distant SBA with FWW in the room and for transfers. OT- Balance Assessment Sitting Balance and Reactions Static Sitting Balance Ability Normal Dynamic Sitting Balance Ability Good Standing Balance and Reactions Static Standing Balance Ability Good Dynamic Standing Balance Ability Good M8 OT- IP Objective Assessments Start: 10/13/23 14:33 Freq: Status: Active Protocol: Document 10/13/23 14:34 [facility] (Rec: 10/13/23 14:55 [facility] [id number]) OT Gross Range of Motion Upper Extremity Range of Motion Assessment Within Functional Limits OT Strength Upper Extremity Strength Assessment Within Functional Limits M9 OT- IP Assessment and Plan Start: 10/13/23 14:33 Freq: Status: Active Protocol: Document 10/14/23 12:18 [facility] (Rec: 10/14/23 12:24 [facility] [id number]) OT Summary Assessment and Plan Potential Rehabilitation Potential Good Analytic Complexity at Evaluation Low Summary OT Impairments Pain,Strength,Balance, Functional Mobility,Dressing, Toileting,Bathing,Toilet Transfers Progress Towards Goals Progressing Toward Goals Assessment Summary Pt doing much better today and mainly SBA for transfer and mobility needs. Pt will still need a little assistance for dressing, toileting, and bathing needs from her mom. Pt to go home with 24/ available assist and outpt PT. Goals Days to Meet Goals 1 Frequency of Treatment Frequency Of Treatment Once a Day Treatment Plan OT Treatment Plan ADL Training,Functional Mobility,Patient/Family Education,Discharge Planning Discharge Recommendations OT Discharge Recommendations Home with Assistance, Outpatient PT Transportation Needs at Discharge Private Vehicle
== END 2023-10-14 13:45 | disposition home or self-care (01) ==
LOC: OR 05:52 → AC 05:54
PROVIDERS: PCP Nurse Practitioner; Referring Provider Orthopaedic Surgery; Visit Provider Orthopaedic Surgery
PROC: 0SR90JZ Replacement of Right Hip Joint with Synthetic Substitute, Open Approach (ICD-10-PCS; CPT 27130; principal; 2023-10-13 07:45)
DX: M16.11 Unilateral primary osteoarthritis, right hip (principal); M87.9 Osteonecrosis, unspecified
CPT/HCPCS: 27130; 36415; 72170; 73502; 85014; 85018; 97116; 97161; 97165; 97530; 97535; C1776; C9290; J0171; J0690; J1170; J2250; J2405; J2704; J3010